=== PATIENT | female | born 2000 | race Caucasian/White ===

== ENCOUNTER 2018-09-21 23:11 | Emergency (ER) | payer SELFPAY ==
[~2018-09-21] VITALS: Ht 167.6 cm; Wt 68.0 kg
[2018-09-21 23:26] VITALS: BP 122/80
== END 2018-09-22 01:22 | disposition home or self-care (01) ==
LOC: ER 23:12
DX: M54.2 Cervicalgia (principal); M62.838 Other muscle spasm; V43.52XA Car driver injured in collision with other type car in traffic accident, initial encounter; Y93.I9 Activity, other involving external motion; Y92.488 Other paved roadways as the place of occurrence of the external cause; Y99.8 Other external cause status
CPT/HCPCS: 72125